=== PATIENT | male | born 1970 | race Caucasian/White ===

== ENCOUNTER 2021-09-04 17:52 | Emergency (ER) | payer OTHER ==
[~2021-09-04 17:52] MED LIST: ACETAMINOPHEN500 MG PO; ASPIRIN 325MG325 MG PO; BUPRENORPHIN-N1 EACH SL; LISINOPRIL-HCT1 EACH PO; OXYCODONE HCL10 MG PO; TORADOL 10 MG T10 MG PO
[2021-09-04 18:37] LABS: HEMOGLOBIN 15.7 gm/dl (14.0-17.5); RED BLOOD COUNT 5.11 M/UL (4.20-5.50)
[2021-09-04 19:05] LABS: BUN/CREATININE RATIO 16 (0-10)
== END 2021-09-04 21:10 | disposition home or self-care (01) ==
LOC: ER1 17:52
PROVIDERS: Student in an Organized Health Care Education/Training Program
DX: R41.82 Altered mental status, unspecified (principal); R07.9 Chest pain, unspecified; E78.5 Hyperlipidemia, unspecified; I10 Essential (primary) hypertension
CPT/HCPCS: 71045; 80048; 82550; 82553; 84484; 85025; 99285

== ENCOUNTER 2022-02-05 11:16 | Emergency (ER) | payer OTHER ==
[~2022-02-05 11:16] MED LIST changes: +BUPRENORPHINE-1 EACH SL; +FLONASE ALLER15.8 ML; +GABAPENTIN600 MG PO; +LISINOPRIL-HCT1 EAC1 PO; +LORATADINE10 MG PO; +NALOXONE HCL4 MG; +SIMVASTATIN10 MG PO
[2022-02-05 12:51] LABS: HEMOGLOBIN 13.1 gm/dl (14.0-17.5); RED BLOOD COUNT 4.25 M/UL (4.20-5.50); WHITE BLOOD COUNT 13.3 K/UL (4.5-11.0)
[2022-02-05 13:15] LABS: BUN/CREATININE RATIO 17 (0-10)
== END 2022-02-05 14:37 | disposition home or self-care (01) ==
LOC: ER1 11:16
PROVIDERS: Family Medicine
DX: S40.022A Contusion of left upper arm, initial encounter (principal); S00.83XA Contusion of other part of head, initial encounter; R41.82 Altered mental status, unspecified; Y04.0XXA Assault by unarmed brawl or fight, initial encounter
CPT/HCPCS: 70450; 71045; 72125; 73030; 80053; 82550; 82553; 84484; 85025; 96372; 99284; G0480; J1630; J2250